=== PATIENT | female | born 1980 | race Caucasian/White ===

== ENCOUNTER 2017-10-22 07:38 | Outpatient (CLI) | payer OTHER ==
[2017-10-22] MEDS ORDERED: GADOBUTROL 10 MMOL/10 ML VIAL ONE (07:54)
[2017-10-22] MEDS ORDERED: GADOBUTROL 10 MMOL/10 ML VIAL IVP ONE (08:18)
--- NOTE | 2017-10-22 13:47 | MRI Report ---
EXAM: MRI BRAIN WITHOUT AND WITH CONTRAST EXAM DATE: 10/22/2017 08:44 AM. CLINICAL HISTORY: Multiple sclerosis. COMPARISON: MRI of the brain 01/18/2016. TECHNIQUE: Multiplanar, multisequence T1-weighted and fluid-sensitive MR sequences of the brain were performed. Sequences optimized for routine evaluation. Other: None. IV Contrast: 9 mL Gadavist. FINDINGS: Brain Volume: Normal for age. Parenchyma: No acute hemorrhage, mass, or infarct. A punctate 2 mm focus of subcortical white matter T2 and FLAIR bright signal is seen in the right anterior subinsular region. This is unchanged. Otherw ise, normal garcia matter and white matter signal intensity is seen. The corpus callosum is normal. No abnormal enhancement. Ventricles/Cisterns: No hydrocephalus. No abnormal extra-axial fluid collection or hemorrhage. Orbits: Symmetric and unremarkable. Sella Turcica: The pituitary gland, cavernous sinuses, suprasellar cistern and optic chiasm are unrem arkable. IAC: Symmetric and unremarkable. Vasculature: Normal signal flow void is seen in the major arterial structures at the skull base. The dural sinuses are patent and enhance normally. Sinuses: No acute sinus disease. Layering mucosal thickening is seen in left sphenoid and posterior l eft ethmoid sinuses. Bones: No focal pathologic appearing marrow signal changes. Other: None. IMPRESSION: 1. Negative MRI of the brain without and with contrast. No acute abnormality. 2. Punctate 2 mm focus of subcortical white matter T2 and FLAIR bright signal in the right anterior s ubinsular region. This is nonspecific. This can be seen in patients with migraine headaches or second jairo to small vessel ischemia. No imaging pattern to suggest demyelination. 3. Small layering fluid levels in left sphenoid and posterior ethmoid sinuses. [facility] Referring Provider Line: [phone] SITE ID: [id number]
== END 2017-10-22 07:39 | disposition home or self-care (01) ==
LOC: DI 07:38
PROVIDERS: ATTEND Nurse Practitioner Adult Health
DX: G35 Multiple sclerosis (principal)
CPT/HCPCS: 70553; A9585

== ENCOUNTER 2018-01-13 10:36 | Emergency (ER) | payer OTHER ==
--- NOTE | 2018-01-13 12:07 | ED Physician Documentation ---
History of Present Illness - Stated complaint Stated Complaint: CHAPPELL/FEVER/CHILLS/NAUSEA - Chief complaint Chief Complaint: General - History obtained from History obtained from: Patient - History of Present Illness Timing: How many days ago (3) Pain level max: 9 Pain level now: 7 Improved by: nothing Worsened by: movement, light, sound. - Additonal information Additional information: 37 yo F with headache x 2 days. Took ibuprofen and sudafed without relief. Had a fever of 100.3 last night. States nausea and diarrhea. Took zofran and nausea resolved. States feels congested currently. This headache is similar to her previous migraines. nausea and diarrhea are normal for her. Review of Systems Ten Systems: 10 systems reviewed and negative Constitutional: denies: Fever, Chills Ears: denies: Ear pain Nose: reports: Rhinorrhea / runny nose, Congestion Throat: denies: Sore throat Cardiac: denies: Chest pain / pressure Respiratory: denies: Cough GI: reports: Nausea, Diarrhea. denies: Abdominal Pain, Vomiting : denies: Now EGA Skin: denies: Rash Musculoskeletal: denies: Neck pain, Back pain Neurologic: reports: Headache PD PAST MEDICAL HISTORY - Past Medical History Past Medical History: Yes Neuro: Headache/migraine Other Past Medical History: MS - Past Surgical History Past Surgical History: Yes HEENT: Tonsil/Adenoidectomy - Present Medications Home Medications: Ambulatory Orders Medication Instructions Recorded Confirmed Cholecalciferol (Vitamin D3) 1,000 unit PO 01/13/18 [Vitamin D3] Cyclobenzaprine [Flexeril] 10 mg PO TID PRN 01/13/18 01/13/18 Dimethyl Fumarate [Tecfidera] 240 mg PO 01/13/18 Zolmitriptan [Zomig] 2.5 mg PO 01/13/18 - Allergies Allergies/Adverse Reactions: Allergies Allergy/AdvReac Type Severity Reaction Status Date / Time cefaclor [From Ceclor] Allergy Unknown Verified 06/15/15 17:29 Penicillins Allergy Unknown Verified 06/15/15 17:29 Sulfa (Sulfonamide Allergy Unknown Verified 06/15/15 17:29 Antibiotics) Tetanus Vaccines and Toxoid Allergy Unknown Verified 06/15/15 17:29 [Tetanus Vaccines & Toxoid] - Social History Does the pt smoke?: Yes Smoking Status: Current every day smoker Does the pt drink ETOH?: Yes Does the pt have substance abuse?: No - Immunizations Immunizations are current?: Yes - POLST Patient has POLST: No PD ED PE NORMAL - Vitals Vital signs reviewed: Yes - General General: Alert and oriented X 3, No acute distress, Well developed/nourished - HEENT HEENT: PERRL, Ears normal, Moist mucous membranes, Pharynx benign, Other (mild TTP over the maxillary sinuses.) - Neck Neck: Supple, no meningeal sign - Cardiac Cardiac: RRR, Strong equal pulses - Respiratory Respiratory: No respiratory distress, Clear bilaterally - Abdomen Abdomen: Soft, Non tender, Non distended - Derm Derm: Warm and dry - Extremities Extremities: No edema - Neuro Neuro: Alert and oriented X 3, bleach chlorinator 2-12 intact, No motor deficit, No sensory deficit, Normal speech, Other (normal cerebellar tests.) - Psych Psych: Normal mood, Normal affect Results - Vitals Vitals: Vital Signs - 24 hr 01/13/18 01/13/18 10:49 13:05 Temperature 37.1 C Heart Rate 108 H 91 Respiratory 14 15 Rate Blood Pressure 123/78 126/73 O2 Saturation 96 100 Oxygen O2 Source Room air PD MEDICAL DECISION MAKING - ED course Complexity details: re-evaluated patient, considered differential, d/w patient, d/w family ED course: Patient is a 37-year-old female who presents to the emergency department with her typical migraine headache. No evidence of encephalitis, meningitis, tumor. Given Toradol, Compazine and Benadryl, headache decreased but was still slightly present therefore Imitrex was given and this resolved her headache. She is well-appearing, nontoxic. Ambulating with a normal steady gait. Will have her follow-up with her doctor for further care. Patient counseled regarding signs and symptoms for which I believe and urgent re-evaluation would be necessary. Patient with good understanding of and agreement to plan and is comfortable going home at this time This document was made in part using voice recognition software. While efforts are made to proofread this document, sound alike and grammatical errors may occur. Departure - Departure Disposition: 01 Home, Self Care Clinical Impression: Headache Qualifiers: Headache type: unspecified Headache chronicity pattern: acute headache Intractability: not intractable Qualified Code(s): R51 - Headache Condition: Good Instructions: ED Headache Migraine Follow-Up: SHANTI CHIN ARNP [Primary Care Provider] - Comments: Return if you worsen. This should continue to improve. Rest today. Discharge Date/Time: 01/13/18 14:41
[2018-01-13] MEDS ORDERED: diphenhydrAMINE INJ 50 MG/ML VIAL IM STA (12:31)
[2018-01-13] MEDS ORDERED: PROCHLORPERAZINE 10 MG/2 ML VIAL IM STA (12:31)
[2018-01-13] MEDS ORDERED: KETOROLAC 60 MG/2 ML VIAL IM STA (12:31)
[2018-01-13 13:05] VITALS: BP 126/73
[2018-01-13] MEDS ORDERED: SUMAtriptan 6 MG/0.5 ML VIAL SUBQ STA (13:36)
== END 2018-01-13 14:41 | disposition home or self-care (01) ==
LOC: ED 10:36
DX: R51 Headache (principal); F17.200 Nicotine dependence, unspecified, uncomplicated
CPT/HCPCS: 36415; 96372; 99283; 99284; J1200

== ENCOUNTER 2023-01-05 14:48 | Emergency (ER) | payer OTHER ==
[2023-01-05 15:13] VITALS: BP 151/109
[2023-01-05] MEDS ORDERED: HYDROcod/ACETAM 5/325 MG TABLET PO STA (16:01)
[2023-01-05] MEDS ORDERED: CLINDAMYCIN 150 MG CAPSULE PO STA (16:01)
--- NOTE | 2023-01-05 16:05 | ED Physician Documentation ---
History of Present Illness - Stated complaint Stated Complaint: RT MOUTH PX - Chief complaint Chief Complaint: Heent - History obtained from History obtained from: Patient - History of Present Illness Pain level max: 7 Pain level now: 7 - Additonal information Additional information: Patient with R dental pain for the past several days. Has pain increased. No fevers. No chills. States had a root canal on Sunday. She contacted her dentist because of increasing pain and he recommended she come here for pain control. No swelling. No difficulty speaking or swallowing. Review of Systems Constitutional: denies: Fever, Chills Skin: denies: Rash Neurologic: denies: Headache PD PAST MEDICAL HISTORY - Past Medical History Past Medical History: No - Past Surgical History Past Surgical History: Yes HEENT: Tonsil/Adenoidectomy - Present Medications Home Medications: Ambulatory Orders Medication Instructions Recorded Confirmed Cholecalciferol (Vitamin D3) 1,000 unit PO 01/13/18 [Vitamin D3] Cyclobenzaprine [Flexeril] 10 mg PO TID PRN 01/13/18 01/13/18 Dimethyl Fumarate [Tecfidera] 240 mg PO 01/13/18 ZOLMitriptan [Zomig] 2.5 mg PO 01/13/18 HYDROcod/ACETAM 5/325 [Thrall 5/325] 1 - 2 ea PO Q6H PRN #14 tablet 01/05/23 clindamycin HCL [Cleocin HCl] 300 mg PO Q6H #40 cap 01/05/23 - Allergies Allergies/Adverse Reactions: Allergies Allergy/AdvReac Type Severity Reaction Status Date / Time cefaclor [From Ceclor] Allergy Unknown Verified 01/05/23 15:13 Penicillins Allergy Unknown Verified 01/05/23 15:13 Sulfa (Sulfonamide Allergy Unknown Verified 01/05/23 15:13 Antibiotics) Tetanus Vaccines and Toxoid Allergy Unknown Verified 01/05/23 15:13 [Tetanus Vaccines & Toxoid] - Living Situation Living Arrangement: reports: At home - Social History Does the pt smoke?: Yes Smoking Status: Current every day smoker Does the pt drink ETOH?: Yes Does the pt have substance abuse?: No - Immunizations Immunizations are current?: Yes - POLST Patient has POLST: No PD ED PE NORMAL - Vitals Vital signs reviewed: Yes - General General: Alert and oriented X 3, No acute distress - HEENT HEENT: Moist mucous membranes, Other (Right upper posterior molar with significant dental decay, no gingival abscess. No facial swelling. Normal phonation. No trismus.) - Neck Neck: Supple, no meningeal sign, No adenopathy - Derm Derm: Warm and dry - Neuro Neuro: Alert and oriented X 3 - Psych Psych: Normal mood, Normal affect Results - Vitals Vitals: Vital Signs - 24 hr 01/05/23 15:11 Temperature 36.1 C L Heart Rate 90 Respiratory 16 Rate Blood Pressure 151/109 H O2 Saturation 98 Oxygen O2 Source Room air PD Medical Decision Making - ED course Complexity details: considered differential, d/w patient ED course: Patient with dental caries and dental pain. Will prescribe antibiotics and pain medication for home. She will see her dentist on Sunday as scheduled. Patient counseled regarding signs and symptoms for which I believe and urgent re- evaluation would be necessary. Patient with good understanding of and agreement to plan and is comfortable going home at this time This document was made in part using voice recognition software. While efforts are made to proofread this document, sound alike and grammatical errors may occur. No evidence of facial cellulitis or dental abscess Departure - Departure Disposition: Home, Self Care Clinical Impression: Pain, dental Condition: Good Instructions: ED Tooth Pain Follow-Up: KAM GALVIN PA-C [Primary Care Provider] - Within 1 week Prescriptions: clindamycin HCL [Cleocin HCl] 300 mg PO Q6H #40 cap HYDROcod/ACETAM 5/325 [Thrall 5/325] 1 - 2 ea PO Q6H PRN #14 tablet PRN Reason: Pain Comments: Please follow-up with your dentist on Sunday as scheduled for further care. Your prescriptions were sent to [facility]. Take all antibiotics until gone. I am prescribing a short course of narcotic pain medication for you. These are potentially dangerous and addictive medications that should be used carefully. These medications may constipate you. Take an [id number] stool softener (docusate) twice daily with plenty of water while taking these medications. If you go 24 hours without a bowel movement, take [id number] miralax, per package instructions. Do not drink or drive while taking these medications. If you received narcotic or sedating medications while in the emergency department, do not drive for 24 hours. Store this medication in a safe, secure place and out of reach of children. It is a violation of federal law to give or sell this medication to another person or to use in a manner other than prescribed. The ED will not refill narcotic prescriptions, including prescriptions lost or stolen. To dispose of unwanted medications: 1. [facility] [address] in [place] has a medication drop box. They accept prescription medications (in pill form) Sunday through Sunday 9:00 a.m. to 5:00 p.m. 2. The [facility] [employer] accepts prescription medications (in pill form only) for disposal year round. Call for more information. 3. Contact the [facility] for the next [facility] sponsored prescription drug collection event. , [phone], or [phone]; Discharge Date/Time: 01/05/23 16:10
== END 2023-01-05 16:10 | disposition home or self-care (01) ==
LOC: ED 14:48
DX: K08.89 Other specified disorders of teeth and supporting structures (principal); F17.200 Nicotine dependence, unspecified, uncomplicated
CPT/HCPCS: 99282; 99283; A9270